=== PATIENT | female | born 1975 | race Caucasian/White ===

== ENCOUNTER 2020-09-30 14:59 | Emergency (ER) | payer BC ==
[~2020-09-30 14:59] MED LIST: LOPRESSOR 25 MG25 MG PO
[2020-09-30 19:38] LABS: HEMOGLOBIN 13.8 gm/dl (12.3-15.3); RED BLOOD COUNT 4.64 M/UL (4.00-5.10); WHITE BLOOD COUNT 6.3 K/UL (4.5-11.0)
[2020-09-30 19:39] LABS: BUN/CREATININE RATIO 12 (0-10)
[2020-09-30] MEDS ORDERED: VENTOLIN HFA 66.7 GM INH (21:54)
[2020-09-30] MEDS ORDERED: DOXYCYCLINE MO100 MG PO (21:54)
== END 2020-09-30 22:09 | disposition home or self-care (01) ==
LOC: ER1 14:59
PROVIDERS: Physician Assistant
DX: Z53.8 Procedure and treatment not carried out for other reasons (principal)
CPT/HCPCS: 36415; 36600; 71045; 80053; 81001; 82550; 82553; 82803; 83605; 83735; 83880; 84100; 84484; 84703; 85025; 85379; 85610; 85652; 85730; 86140; 87040; 87086; 93005; 96365; 96366; 96375; 99285; J0456; J1100; J7030; Q9967

== ENCOUNTER 2020-10-03 06:20 | Inpatient (IN) | payer BC ==
[~2020-10-03] VITALS: Ht 162.6 cm; Wt 90.7 kg
[~2020-10-03 06:20] MED LIST changes: +DOXYCYCLINE MO100 MG PO; +VENTOLIN HFA 66.7 GM INH
[2020-10-03 06:55] LABS: HEMOGLOBIN 12.8 gm/dl (12.3-15.3); RED BLOOD COUNT 4.41 M/UL (4.00-5.10); WHITE BLOOD COUNT 6.1 K/UL (4.5-11.0)
[2020-10-03 07:33] LABS: BUN/CREATININE RATIO 13 (0-10)
[2020-10-03] MEDS ORDERED: PROPAFENONE HC150 MG PO (13:05)
--- NOTE | 2020-10-04 01:24 | NUR ---
0030- NO CHANGE FROM 7P SHIFT/NURSING ASSESSMENT
[2020-10-04 03:42] LABS: BUN/CREATININE RATIO 31 (0-10)
[2020-10-05 04:10] LABS: BUN/CREATININE RATIO 29 (0-10)
[2020-10-05 13:04] LABS: BUN/CREATININE RATIO 29 (0-10)
[2020-10-06 05:21] LABS: BUN/CREATININE RATIO 30 (0-10)
[2020-10-07 06:46] LABS: BUN/CREATININE RATIO 31 (0-10)
[2020-10-07] MEDS ORDERED: COMPACT COMPRE1 EACH MC (11:55)
[2020-10-07] MEDS ORDERED: IPRAT-ALBUT 0.5-3 ML NEB (11:55)
[2020-10-07] MEDS ORDERED: MEDROL DOSEPAK 24 MG PO (11:55)
== END 2020-10-07 17:23 | disposition home or self-care (01) | DRG 177 ==
LOC: ER1 06:20 → CDU 09:05 → M/S 18:51
PROVIDERS: ADMIT Internal Medicine
PROC: 8E0ZXY6 Isolation (ICD-10-PCS; principal; 2020-10-03)
PROC: XW033E5 Introduction of Remdesivir Anti-infective into Peripheral Vein, Percutaneous Approach, New Technology Group 5 (ICD-10-PCS; 2020-10-03)
PROC: XW13325 Transfusion of Convalescent Plasma (Nonautologous) into Peripheral Vein, Percutaneous Approach, New Technology Group 5 (ICD-10-PCS; 2020-10-04)
DX: U07.1 COVID-19 (principal); J12.82 Pneumonia due to coronavirus disease 2019; J96.01 Acute respiratory failure with hypoxia; R00.0 Tachycardia, unspecified; E87.6 Hypokalemia; R73.9 Hyperglycemia, unspecified; T38.0X5A Adverse effect of glucocorticoids and synthetic analogues, initial encounter; Z79.899 Other long term (current) drug therapy
CPT/HCPCS: 36415; 36600; 71045; 80048; 80053; 81001; 82550; 82553; 82803; 82962; 83036; 83605; 83690; 83735; 83880; 84100; 84484; 84703; 85025; 85379; 85610; 85652; 85730; 86140; 86900; 86901; 86927; 87040; 87086; 90471; 93005; 94640; 94664; 94760; 96365; 96366; 96372; 96375; 96376; 99285; J0456; J1100; J1650; J2405; J7030; J7050; Q9967

== ENCOUNTER → 2021-06-19 | Outpatient (CLI) | payer BC ==
[~2021-06-19] MED LIST changes: +COMPACT COMPRE1 EACH MC; +IPRAT-ALBUT 0.5-3 ML NEB; +MEDROL DOSEPAK 24 MG PO; +PROPAFENONE HC150 MG PO
== END ==
LOC: MAMO 10:30
DX: Z12.31 Encounter for screening mammogram for malignant neoplasm of breast (principal)
CPT/HCPCS: 77063; 77067